=== PATIENT | male | born 2000 | race Hispanic/Latino ===

== ENCOUNTER 2021-01-31 10:40 | Emergency (ER) | payer SELFPAY ==
[~2021-01-31] VITALS: Ht 180.3 cm; Wt 75.5 kg
[2021-01-31] MEDS ORDERED: LIDOCAINE HCL 1% LOCAL INJ 20 ML VIAL INJ STA (10:51)
[2021-01-31] MEDS ORDERED: LIDOCAINE HCL 1% LOCAL INJ 20 ML VIAL ONE (11:07)
[2021-01-31] MEDS ORDERED: ACETAMINOPHEN-1 EAC4 PO (11:24)
== END 2021-01-31 11:50 | disposition home or self-care (01) ==
LOC: FSED 10:50
DX: S62.304A Unspecified fracture of fourth metacarpal bone, right hand, initial encounter for closed fracture (principal); S62.306A Unspecified fracture of fifth metacarpal bone, right hand, initial encounter for closed fracture; W22.8XXA Striking against or struck by other objects, initial encounter; F17.210 Nicotine dependence, cigarettes, uncomplicated
CPT/HCPCS: 29130; 73120; 73130; 99284; J2001